=== PATIENT | male | born 2000 | race African-American/Black ===

== ENCOUNTER 2019-11-03 18:20 | Emergency (ER) | payer SELFPAY ==
--- NOTE | 2019-11-03 19:11 | RAD ---
LEFT CLAVICLE TWO VIEWS: History: Clavicular pain. FINDINGS: No signs of fracture or dislocation. The distal end of the clavicle is somewhat prominent. This may b e the sequellae of an old injury although no fracture is seen. Glenohumeral joint appears unremarkabl e. IMPRESSION: No acute findings. POS: [facility]AL
== END 2019-11-03 19:01 | disposition home or self-care (01) ==
LOC: ERS 18:20
DX: S40.012A Contusion of left shoulder, initial encounter (principal); J45.909 Unspecified asthma, uncomplicated; F17.210 Nicotine dependence, cigarettes, uncomplicated; W10.9XXA Fall (on) (from) unspecified stairs and steps, initial encounter; Y93.02 Activity, running